=== PATIENT | female | born 1980 | race Caucasian/White ===

== ENCOUNTER → 2018-04-29 | Outpatient (CLI) | payer BC ==
[~2018-04-29] MED LIST: ACHYD1T PO; DCS100C PO; HYDR-89 PO; IBP800T PO; IBUP-1780 PO; MULT-35 PO; OXYC1TAB12 PO; PHEN-483 PO; PREN1TAB71 PO
--- NOTE | 2018-04-29 14:07 | Diagnostic Imaging Report ---
INDICATION: Routine screening. COMPARISON: No prior mammograms are available for comparison. This is a baseline study. TECHNIQUE: 2D and 3D bilateral screening mammography was performed with CAD. FINDINGS: Scattered fibroglandular densities are identified bilaterally. There is a focal density in the superior left breast on the MLO view at mid depth. This most likely represents fibroglandular tissue but additional views are recommended. No corresponding density on the CC view is seen. The right breast is unremarkable. The axillae are unremarkable. IMPRESSION: Left breast density. Additional views are recommended for further evaluation. ACR BI-RADS Category 0: Incomplete. (Needs additional imaging evaluation). Result letter will be mailed to the patient. Note: At least 10% of breast cancer is not imaged by mammography. Dictated by: Dictated on workstation # [id number]
== END ==
LOC: RAD 10:35
PROVIDERS: ATTEND Obstetrics & Gynecology
DX: Z12.31 Encounter for screening mammogram for malignant neoplasm of breast (principal); R92.8 Other abnormal and inconclusive findings on diagnostic imaging of breast
CPT/HCPCS: 77067

== ENCOUNTER → 2018-05-15 | Outpatient (CLI) | payer BC ==
--- NOTE | 2018-05-15 17:41 | Diagnostic Imaging Report ---
INDICATION: Abnormal mammogram with left breast density. This study was performed for further evaluation. EXAMINATION: Sonographic interrogation of the upper outer left breast was performed. FINDINGS: No sonographic abnormality is seen. No solid or cystic mass is identified. The left axilla is unremarkable as well. IMPRESSION: No sonographic abnormality is seen. Patient may return to routine annual screening mammography. ACR BI-RADS Category 1: Negative. Result letter will be mailed to the patient. Note: At least 10% of breast cancer is not imaged by mammography. Dictated by: Dictated on workstation # [id number]
--- NOTE | 2018-05-15 17:45 | Diagnostic Imaging Report ---
INDICATION: Left breast density. Patient presents for additional views. COMPARISON: Recent screening study from 04/29/2018. EXAMINATION: Unilateral left 2D and 3D diagnostic mammography was performed including spot compression ML, routine ML and exaggerated CC views. FINDINGS: There appears to be some dispersion of the fibroglandular elements in the upper left breast. Area of density most likely represents superimposed tissue. There is some residual density at this location NS further evaluation with ultrasound is recommended. This appears to be laterally located approximately 6-7 cm from the nipple. No suspicious calcifications are seen. IMPRESSION: Mild residual density in the upper outer left breast, approximately 6-7 cm from the nipple. Further evaluation of this area with ultrasound is recommended and will be performed today. ACR BI-RADS Category 0: Incomplete. (Needs additional imaging evaluation). Result letter will be mailed to the patient. Note: At least 10% of breast cancer is not imaged by mammography. Dictated by: Dictated on workstation # [id number]
== END ==
LOC: RAD 13:08
PROVIDERS: ATTEND Obstetrics & Gynecology
DX: R92.2 Inconclusive mammogram (principal)
CPT/HCPCS: 76642

== ENCOUNTER → 2022-06-03 | Outpatient (CLI) | payer BC ==
--- NOTE | 2022-06-03 12:51 | Diagnostic Imaging Report ---
INDICATION: Routine screening. COMPARISON: 04/29/2018. TECHNIQUE: 2D and 3D bilateral screening mammography was performed with CAD. FINDINGS: Scattered fibroglandular densities are identified bilaterally. The parenchymal pattern is stable. No mass or malignant-appearing microcalcifications are seen. The axillae are unremarkable. IMPRESSION: No mammographic features suspicious for malignancy are identified. ACR BI-RADS Category 1: Negative. Result letter will be mailed to the patient. Note: At least 10% of breast cancer is not imaged by mammography. Dictated by: Dictated on workstation # [id number]
== END ==
LOC: RAD 10:46
PROVIDERS: ATTEND Obstetrics & Gynecology
DX: Z12.31 Encounter for screening mammogram for malignant neoplasm of breast (principal)
CPT/HCPCS: 77063; 77067